=== PATIENT | female | born 1985 | race Hispanic/Latino ===

== ENCOUNTER → 2020-07-30 | Day surgery (SDC) | payer OTHER, MEDICAID ==
--- NOTE | 2020-07-30 14:02 | MMO ---
FILMS COMPARED: The present examination has been compared to a prior imaging study performed at [facility] on 07/24/2020. MAMMOGRAM FINDINGS: There are scattered fibroglandular densities. There is a mass with associated biopsy clip seen in the right breast. IMPRESSION: MASS IN THE RIGHT BREAST IS CONFIRMED UTILIZING POST PROCEDURE MAMMOGRAM. Reported by: JONNA PAT MD Electonically Signed: [id number]
--- NOTE | 2020-07-30 15:00 | ULT ---
ULTRASOUND-GUIDED RIGHT BREAST BIOPSY: Date: 07/30/2020 HISTORY: 9 mm nodule located at the 12 o'clock position of right breast, anterior aspect of breast, for which biopsy was recommended. COMPARISON: Previous mammogram and ultrasound studies of 07/24/2020. TECHNIQUE: After informed consent was obtained, the patient was prepped and draped in the normal sterile fashion . Local anesthesia was obtained with 1% Xylocaine mixed with sodium bicarb. A small skin incision was made with a #11 scalpel blade. A total of four core biopsies were performed using a 14 gauge biopsy gun. The patient tolerated this portion of the procedure without any difficulty. Biopsy clip was deployed. The post biopsy mammogram showed good position of the clip directly adjacen t to a small breast nodule. IMPRESSION: Ultrasound-directed biopsy of right breast mass as above. No immediate complications of the procedure . POS: OFF
== END ==
LOC: BICULT 12:48
PROVIDERS: ATTEND Nurse Practitioner Women's Health
PROC: 0H9T3ZX Drainage of Right Breast, Percutaneous Approach, Diagnostic (ICD-10-PCS; principal; 2020-07-30)
DX: N60.21 Fibroadenosis of right breast (principal); N60.31 Fibrosclerosis of right breast
CPT/HCPCS: 19083; 88305; 88341; 88342

== ENCOUNTER 2023-06-24 11:34 | Outpatient (CLI) | payer BC | END 2023-06-24 11:35 | disposition home or self-care (01) | LOC: SCSMRI 11:34 | PROVIDERS: ATTEND Physician Assistant | DX: R19.00 Intra-abdominal and pelvic swelling, mass and lump, unspecified site (principal); K76.0 Fatty (change of) liver, not elsewhere classified; R16.2 Hepatomegaly with splenomegaly, not elsewhere classified | CPT/HCPCS: 74183 ==

== ENCOUNTER 2024-08-04 15:02 | Outpatient (CLI) | payer BC ==
[~2024-08-04 15:02] MED LIST: Magnevist 469MG/ML 20 ML VIAL ONE
== END 2024-08-04 15:03 | disposition home or self-care (01) ==
LOC: BICMRI 15:02
PROVIDERS: ATTEND Physician Assistant
DX: R22.41 Localized swelling, mass and lump, right lower limb (principal)
CPT/HCPCS: 72197; 82565

== ENCOUNTER 2025-04-20 04:18 | Emergency (ER) | payer BC ==
[2025-04-20 04:58] LABS: #Basophils Less than 0.03 10x3/uL (0.0-0.2); #Eosinophils Less than 0.03 10x3/uL (0.0-0.7); #Monocytes 0.30 10x3/uL (0.11-0.59); #Neutrophils 8.46 10x3/uL (1.40-6.50); %Basophils 0.1 % (0.0-1.0); %Eosinophils 0.0 % (0.0-10.0); %Lymphocytes 21.7 % (21.0-51.0); %Monocytes 2.7 % (0.0-10.0); %Neutrophils 75.1 % (42.0-75.0); Hematocrit 39.7 % (36.0-47.0); Hemoglobin 13.1 g/dL (12.0-16.0); Mean Corpuscular Hemoglobin 26.5 pg (27.0-31.0); Mean Corpuscular Volume 80.4 fL (78.0-98.0); Platelet Count 448 10x3/uL (130-400); Red Blood Cell (RBC) Count 4.94 mill/uL (4.20-5.40); White Blood Cell (WBC) Count 11.26 10x3/uL (4.8-10.8)
[2025-04-20 05:11] LABS: ALT (SGPT) 28 U/L (Less than 34); AST (SGOT) 21 U/L (11-34); Albumin 3.9 g/dL (3.1-4.5); Alkaline Phosphatase 65 U/L (40-110); Anion Gap 18 mmol/L (10-20); BUN (Urea Nitrogen) 13 mg/dL (7.0-18.7); Bilirubin, Total 0.4 mg/dL (0.3-1.2); Calc. Creatinine Clearance 0 mL/min (70-130); Calcium 9.8 mg/dL (7.8-10.44); Carbon Dioxide 20 mmol/L (22-29); Chloride 104 mmol/L (98-107); Globulin 4.2 g/dL (2.4-3.5); Glucose 117 mg/dL (70-105); Potassium 4.1 mmol/L (3.5-5.1); Sodium 138 mmol/L (136-145)
== END 2025-04-20 06:19 | disposition home or self-care (01) ==
LOC: ERS 04:18
DX: R07.9 Chest pain, unspecified (principal); J45.909 Unspecified asthma, uncomplicated; E11.9 Type 2 diabetes mellitus without complications; Z79.84 Long term (current) use of oral hypoglycemic drugs; Z79.899 Other long term (current) drug therapy
CPT/HCPCS: 71045; 80053; 84484; 85025; 85379; 87428; 93005